=== PATIENT | female | born 1985 | race Caucasian/White ===

== ENCOUNTER 2022-01-13 09:06 | Inpatient (IN) | payer BC ==
[~2022-01-13] VITALS: Ht 185.5 cm; Wt 123.6 kg
[2022-01-19] VITALS (16 sets, daily range): BP systolic 101–138; BP diastolic 18–87; PULSE 65–78; TEMP 97.7–98.1
[2022-01-19] MEDS ORDERED: TRANDATE 100MG100 MG PO (11:12)
[2022-01-19] MEDS ORDERED: PRENATAL TABLET PO (11:13)
[2022-01-19 11:18] LABS: BASO % 0.3 % (0.0-2.0); EOS # 0.1 K/mm3 (0.0-0.7); EOS % 1.3 % (0.0-4.0); GRAN # 5.4 K/mm3 (1.4-6.5); GRAN % 63.1 % (42.2-75.2); LYMPH # 2.1 K/mm3 (1.2-3.4); LYMPH % 24.7 % (20.0-51.0); MEAN CELL VOLUME 90 fl (80.0-100.0); MEAN CORPUSCULAR HEMOGLOBIN 30 pg (27-31); MEAN CORPUSCULAR HGB CONC 34 g/dl (33.0-37.0); MEAN PLATELET VOLUME 10.9 fl (7.4-10.4); MONO # 0.9 K/mm3 (0.1-0.6); PLATELET COUNT 177 K/mm3 (130-400); RED BLOOD COUNT 3.62 M/mm3 (4.10-5.30)
[2022-01-19 11:23] LABS: HEMATOCRIT 32.7 % (37.0-47.0)
[2022-01-19 11:51] LABS: ALBUMIN 2.7 gm/dL (3.5-5.0); BILIRUBIN,TOTAL 0.6 mg/dL (0.2-1.2); CALCIUM 8.7 mg/dL (8.4-10.2); CREATININE, serum 0.71 mg/dL (0.57-1.11); POTASSIUM 3.9 mmol/L (3.5-4.5); TOTAL PROTEIN 6.1 gm/dL (6.2-8.1)
[2022-01-20 00:30] VITALS: BP 112/44; PULSE 68; TEMP 97.5
[2022-01-20 04:00] VITALS: BP 121/66; PULSE 74; TEMP 98.1
[2022-01-20 06:01] LABS: HEMOGLOBIN 9.7 g/dl (12.5-16.0)
[2022-01-20 07:43] VITALS: BP 131/69; PULSE 68; TEMP 97.9
--- NOTE | 2022-01-20 09:22 | NUR ---
Initial visit; Parents thanked sap business analyst for offering congratulations and God's blessings for the of their daughter. Emergency Management Program Specialist thanked family for choosing [facility].
[2022-01-20] MEDS ORDERED: PERCOCET 325 MG1 TA2 PO (09:33)
[2022-01-20 16:09] VITALS: BP 127/76; PULSE 87; TEMP 97.9
[2022-01-20 20:20] VITALS: BP 145/85; PULSE 64; TEMP 98
[2022-01-21 08:30] VITALS: BP 132/80; PULSE 79; TEMP 97.9
[2022-01-21] MEDS ORDERED: IBU600 MG PO (10:51)
== END 2022-01-21 11:45 | disposition home or self-care (01) | DRG 788 ==
LOC: OB 01-19 09:06
PROVIDERS: ADMIT Obstetrics & Gynecology
PROC: 10D00Z1 Extraction of Products of Conception, Low, Open Approach (ICD-10-PCS; principal; 2022-01-19)
DX: O99.214 Obesity complicating childbirth (principal); Z3A.37 37 weeks gestation of pregnancy; Z37.0 Single live birth; O10.92 Unspecified pre-existing hypertension complicating childbirth; O34.13 Maternal care for benign tumor of corpus uteri, third trimester; D25.9 Leiomyoma of uterus, unspecified; J30.2 Other seasonal allergic rhinitis; O99.52 Diseases of the respiratory system complicating childbirth; Z90.89 Acquired absence of other organs; O90.81 Anemia of the puerperium; D64.9 Anemia, unspecified
CPT/HCPCS: J1100; J1885; J2370; J2405; J2590; J2765; J7120